=== PATIENT | male | born 1975 | race African-American/Black ===

== ENCOUNTER 2017-10-12 20:25 | Emergency (ER) | payer OTHER ==
[~2017-10-12] VITALS: Ht 188 cm; Wt 127.0 kg
[2017-10-12 20:40] VITALS: BP 129/72
--- NOTE | 2017-10-12 20:46 | NUR ---
TO LOBBY, A/W BED VSSPETRA NOTED
--- NOTE | 2017-10-13 01:43 | NUR ---
PT TO OF [facility]
[2017-10-13 01:45] VITALS: BP 129/72
--- NOTE | 2017-10-13 01:45 | NUR ---
APATIENT PRESENTS TO ED WITH C/O PAIN TO RT POINTER FINGER S/P LACERATION WHILE WASHING DISHES. PT DENIES N/V/D; AAOX4 WITH EVEN AND STEADY GAIT; LUNGS CLEAR BL; HR EVEN AND REGULAR; PT DENIES ANY FEVER, CP, SOB, OR COUGH AT THIS TIME; PATIENT STATES PAIN OF 10/10 AT THIS TIME; VSS; PATIENT POSITIONED FOR COMFORT; HOB ELEVATED; BEDRAILS UP X2; BED DOWN. ER MD MADE AWARE OF PT STATUS.
--- NOTE | 2017-10-13 02:00 | NUR ---
DR ROBLEDO PLACED STICHES ON RT POINTER FINGER. PT TOLERATED WELL.
[2017-10-13] MEDS ORDERED: HYDROcodone/APAP 5/325 MG 1 TAB TAB ONE (02:30)
[2017-10-13] MEDS ORDERED: NEOMYCIN/POLYMYXIN/BACITRACIN 0.9 GM/1 PKT TP ONE (03:14)
[2017-10-13] MEDS ORDERED: HYDROcodone/APAP 5/325 MG 1 TAB TAB PO ONE (03:20)
== END 2017-10-13 03:30 | disposition home or self-care (01) ==
LOC: MED 20:25
DX: S61.211A Laceration without foreign body of left index finger without damage to nail, initial encounter (principal); I10 Essential (primary) hypertension; Z88.0 Allergy status to penicillin; W25.XXXA Contact with sharp glass, initial encounter; Y93.E9 Activity, other interior property and clothing maintenance; Y92.89 Other specified places as the place of occurrence of the external cause; Y99.8 Other external cause status
CPT/HCPCS: 73140; 99284

== ENCOUNTER 2017-10-23 09:27 | Emergency (ER) | payer OTHER ==
[~2017-10-23] VITALS: Ht 188 cm; Wt 129.7 kg
[2017-10-23 09:41] VITALS: BP 136/78
--- NOTE | 2017-10-23 09:45 | NUR ---
Pt taken to bed 12.
--- NOTE | 2017-10-23 09:48 | NUR ---
42/F presents to ED for suture removal to right index finger. Sutures were placed here 10 days ago. Sutures are dry, clear, intact, no drainage noted. Pt denies pain. AOX4, ambulatory with steady gait. VSS.
[2017-10-23 10:32] VITALS: BP 128/68
--- NOTE | 2017-10-23 10:32 | NUR ---
Patient discharged with v/s stable. Written and verbal after care instructions given and explained. Patient verbalized understanding. Ambulatory with steady gait. All questions addressed prior to discharge. Advised to follow up with PMD.
== END 2017-10-23 10:32 | disposition home or self-care (01) ==
LOC: MED 09:27
DX: S61.211D Laceration without foreign body of left index finger without damage to nail, subsequent encounter (principal); I10 Essential (primary) hypertension; Z88.0 Allergy status to penicillin; X58.XXXD Exposure to other specified factors, subsequent encounter
CPT/HCPCS: 99283